=== PATIENT | female | born 1980 | race Caucasian/White ===

== ENCOUNTER 2021-12-15 11:16 | Observation (INO) ==
[2021-12-15] MEDS ORDERED: ONDANSETRON INJ 2 MG/ML 2 ML VIAL IV STA (11:33)
--- NOTE | 2021-12-15 11:42 | Emergency Department Note ---
History of Present Illness General Chief complaint: Vaginal Bleeding Stated complaint: HYSTERECTOMY INCISION OPENING, REF Time Seen by Provider: 12/15/21 11:26 Source: patient History of Present Illness Provider complaint: Pelvic pain Onset (ago): hour(s) Location: pelvis Radiation: non-radiation Pain Consistency: + constant Maximum Pain Intensity: 10 Quality: + sharp Exacerbated By: + other (Pelvic exam by registered pharmacist) Associated symptoms: + nausea/vomiting; no chest pain, no cough, no fever/chills, no shortness of breath or no weakness This is a 41-year-old female who underwent robotic assisted hysterectomy 10 weeks ago presenting with pelvic pain starting at 7 AM this morning. The patient states that she has been having intercourse over the past month without issue. Today she had intercourse in the morning at approximately 7 AM. They were finished and then less than a minute later she started having severe pain in her vagina. She describes it as a sharp pain. It was associated with vomiting. She rates it a 10 out of 10 in severity. It is better now after she took a half of a Percocet prior to arrival. She says it got better but then became worse again. She called her registered pharmacist to saw her in the office. She did an exam and was told that she had a vaginal cuff tear. Due to her pain she could not have an ultrasound and so she was sent to the emergency department for blood work, CT scanning of the abdomen pelvis and a COVID test. The patient denies any fever, cough or cold symptoms, chest pain, shortness of breath, diarrhea, urinary symptoms or leg swelling or pain. Home Medications Medication Instructions Recorded Confirmed Type ropinirole 2 mg tablet 2 mg PO HS 09/15/21 12/15/21 History montelukast 10 mg tablet 10 mg PO HS 09/30/21 12/15/21 History (Alize) geriatric multivitamin-min 1 tab PO DAILY 10/05/21 12/15/21 History Allergies Allergy/AdvReac Type Severity Reaction Status Date / Time Penicillins Allergy Severe Anaphylaxis Verified 12/15/21 10:37 amoxicillin Allergy Intermediate itching Verified 12/15/21 10:37 codeine Allergy Intermediate itching Verified 12/15/21 10:37 nickel Allergy Intermediate itching Verified 12/15/21 10:37 and skin irritation Past Med/Surg History Medical History (Updated 12/15/21 @ 16:14 by Xavi Guillaume MD) History of COVID-19 05/2021 nasal congestion and headache History of Hugo-Portillo virus infection Hx of sinus tachycardia no recent problems Restless leg syndrome Seasonal allergies Surgical History H/O LEEP H/O wrist surgery right S/P laparoscopic hysterectomy TLH-BS, R ovarian cystectomy, cysto Family History Other No family history of adverse response to anesthesia Social History Smoking Status: Never smoker Tobacco Type: E-cigarettes / Vaping Second Hand Exposure: No; Hx Alcohol Use: Yes Alcohol type: wine Hx Substance Use: No Preferred Language: Barbadian Communication Ability: Effective Carton Liner Required: No Beliefs That Will Affect Care: None Current Living Situation: Family Feels Safe at Home: Yes Assistive Devices: Contacts and Glasses Review of Systems See HPI for pertinent positives & negatives. and A total of 10 systems reviewed and were otherwise negative Physical Exam Vital Signs Vital Signs - 24 hr 12/15/21 11:19 12/15/21 11:48 12/15/21 14:00 Temperature 37 C Temperature Source Temporal Artery Scan Pulse Rate 92 H 68 Pulse Rate [Right Finger] 68 70 Pulse Rhythm Regular Pulse Rhythm [Right Finger] Regular Regular Pulse Strength [Right Finger] Normal Normal Respiratory Rate 18 18 17 Respiratory Effort / Characteristics Non-Labored Spontaneous Non-Labored Spontaneous Non-Labored Spontaneous Respiratory Depth Normal Normal Normal Respiratory Pattern Regular Regular Regular Blood Pressure 123/79 Blood Pressure [Right Arm] 121/69 Blood Pressure Mean 93 Blood Pressure Mean [Right Arm] 86 Blood Pressure Position Standing Blood Pressure Position [Right Arm] Lying Pulse Oximetry 95 98 98 Oxygen Delivery Method Room Air Room Air Room Air Sepsis Recent Fever Within 48 Hours No Sepsis New/Unexplained Change in Mental Status No Sepsis Action Taken by Nursing No Action Required 12/15/21 15:21 12/15/21 15:41 Temperature 36.9 C Temperature Source Oral Pulse Rate 70 Pulse Rate [Right Finger] 67 Pulse Rhythm Pulse Rhythm [Right Finger] Regular Pulse Strength [Right Finger] Normal Respiratory Rate 16 20 Respiratory Effort / Characteristics Non-Labored Spontaneous Respiratory Depth Normal Respiratory Pattern Regular Blood Pressure 106/68 Blood Pressure [Right Arm] 114/56 L Blood Pressure Mean Blood Pressure Mean [Right Arm] 75 Blood Pressure Position Blood Pressure Position [Right Arm] Sitting Pulse Oximetry 97 96 Oxygen Delivery Method Room Air Room Air Sepsis Recent Fever Within 48 Hours Sepsis New/Unexplained Change in Mental Status Sepsis Action Taken by Nursing Constitutional: Vital signs reviewed. Eyes: Pupils are equal round reactive to light. Conjunctiva are noninjected. ENT: Pharynx is clear without erythema or exudate. Mucous membranes are moist. Neck supple without meningeal signs. Respiratory: Clear to auscultation bilaterally. Breath sounds are equal rita aterally. Cardiovascular: Regular rate and rhythm. No rubs or gallops. GI: Soft, nondistended with mild suprapubic tenderness. Well-healed laparoscopy scars. Bowel sounds are present. : Deferred per patient request. Musculoskeletal: No peripheral edema. No lower extremity tenderness. Integumentary: No cyanosis. or jaundice. Neurological: The patient is awake and alert. No focal deficits. Psychiatric: Slightly anxious. Course Administered Medications Sodium Chloride (Nss 1000ml) 1,000 mls @ 125 mls/hr IV .Q8H RADHA Stop: 01/14/22 11:44 Last Admin: 12/15/21 11:59 Dose: 125 mls/hr Documented by: [id number] Discontinued Medications Clindamycin Phosphate (Cleocin/D5w) 900 mg in 50 mls @ 100 mls/hr IV ONE ONE Stop: 12/15/21 14:59 Last Admin: 12/15/21 15:39 Dose: 100 mls/hr Documented by: [id number] Ioversol (Optiray 320 100ml) 95 ml IV ONCE ONE Stop: 12/15/21 13:00 Last Admin: 12/15/21 12:52 Dose: 95 ml Documented by: [id number] Morphine Sulfate (Morphine Sulfate 2 Mg/Ml Carp) 2 mg IV NOW STA Stop: 12/15/21 13:10 Last Admin: 12/15/21 15:30 Dose: Not Given Documented by: [id number] Ondansetron HCl (Ondansetron Inj 2 Mg/Ml 2 Ml Vial) 4 mg IV NOW STA Stop: 12/15/21 11:34 Last Admin: 12/15/21 15:30 Dose: Not Given Documented by: [id number] Medical Decision Making Differential Diagnosis Surgical wound dehiscence, vaginal cuff tear, hematoma, hemorrhage, anemia Medical Records Attestation: I reviewed the patient's medical records. I did perform a limited focused review of portions of the patient's old chart on the electronic medical record. The patient underwent robotic assisted hysterectomy by Dr. Culp on October 05. She was seen by Dr. Squires today and diagnosed with a vaginal cuff tear and sent to the emergency department for CT of the abdomen pelvis, blood work and COVID testing. Anticipate repair by Dr. Menon. Home Medications Current Medication List: was personally reviewed by me Laboratory Data Attestation: I reviewed the patient's lab results. Result diagrams: 12/15/21 11:45 12/15/21 11:45 Lab Results 12/15/21 12/15/21 12/15/21 Range/Units 11:45 11:45 11:45 WBC 14.17 H (4.8-10.8) K/uL RBC 4.39 (4.2-5.4) M/uL Hgb 12.6 (12.0-16.0) g/dL Hct 37.2 (37-47) % MCV 84.7 (80-100) fL MCH 28.7 (25-34) pg MCHC 33.9 (32-36) g/dL RDW Std Deviation 39.7 (36.4-46.3) fL RDW Coeff of Aspne 13.0 (11.5-14.5) % Plt Count 253 (130-400) K/uL MPV 10.9 H (7.4-10.4) fL Immature Gran % (Auto) 0.1 % Neut % (Auto) 80.5 % Lymph % (Auto) 12.2 % Taylor % (Auto) 6.8 % Eos % (Auto) 0.2 % Baso % (Auto) 0.2 % Neut # (Auto) 11.39 H (1.4-6.5) K/uL Lymph # (Auto) 1.73 (1.2-3.4) K/uL Taylor # (Auto) 0.97 H (0.11-0.59) K/uL Eos # (Auto) 0.03 (0-0.5) K/uL Baso # (Auto) 0.03 (0-0.2) K/uL Immature Gran # (Auto) 0.02 (0.00-0.02) K/uL Sodium 137 (136-145) mmol/L Potassium 3.8 (3.5-5.1) mmol/L Chloride 108 H (98-107) mmol/L Carbon Dioxide 21 (21-32) mmol/L Anion Gap 8 (3-11) BUN 8 (6-23) mg/dl Creatinine 0.70 (0.6-1.2) mg/dl Est Cr Clr Drug Dosing Not Reportable Est GFR ( Amer) 123.0 ml/min Est GFR (Non-Af Amer) 106.1 ml/min BUN/Creatinine Ratio 11.4 (10-20) Glucose 114 H (70-99(Fasting)) mg/dl Calcium 8.9 (8.5-10.1) mg/dl Total Bilirubin 0.4 (0.2-1.0) mg/dl AST 18 (13-39) U/L ALT 19 (7-52) U/L Alkaline Phosphatase 52 (34-104) U/L Total Protein 6.8 (6.0-8.3) gm/dl Albumin 3.9 (3.4-5.0) gm/dl Globulin 2.9 (2.5-4.0) gm/dl Albumin/Globulin Ratio 1.3 (0.9-2) SARS-CoV-2, RNA, NAAT NEGATIVE (NEGATIVE) Blood Type Antibody Screen 12/15/21 Range/Units 14:22 WBC (4.8-10.8) K/uL RBC (4.2-5.4) M/uL Hgb (12.0-16.0) g/dL Hct (37-47) % MCV (80-100) fL MCH (25-34) pg MCHC (32-36) g/dL RDW Std Deviation (36.4-46.3) fL RDW Coeff of Aspen (11.5-14.5) % Plt Count (130-400) K/uL MPV (7.4-10.4) fL Immature Gran % (Auto) % Neut % (Auto) % Lymph % (Auto) % Taylor % (Auto) % Eos % (Auto) % Baso % (Auto) % Neut # (Auto) (1.4-6.5) K/uL Lymph # (Auto) (1.2-3.4) K/uL Taylor # (Auto) (0.11-0.59) K/uL Eos # (Auto) (0-0.5) K/uL Baso # (Auto) (0-0.2) K/uL Immature Gran # (Auto) (0.00-0.02) K/uL Sodium (136-145) mmol/L Potassium (3.5-5.1) mmol/L Chloride (98-107) mmol/L Carbon Dioxide (21-32) mmol/L Anion Gap (3-11) BUN (6-23) mg/dl Creatinine (0.6-1.2) mg/dl Est Cr Clr Drug Dosing Est GFR ( Amer) ml/min Est GFR (Non-Af Amer) ml/min BUN/Creatinine Ratio (10-20) Glucose (70-99(Fasting)) mg/dl Calcium (8.5-10.1) mg/dl Total Bilirubin (0.2-1.0) mg/dl AST (13-39) U/L ALT (7-52) U/L Alkaline Phosphatase (34-104) U/L Total Protein (6.0-8.3) gm/dl Albumin (3.4-5.0) gm/dl Globulin (2.5-4.0) gm/dl Albumin/Globulin Ratio (0.9-2) SARS-CoV-2, RNA, NAAT (NEGATIVE) Blood Type A Positive Antibody Screen NEGATIVE Imaging Data Radiologist's Impression: Abdomen/Pelvis CT 12/15/21 11:33 CT OF THE ABDOMEN AND PELVIS WITH CONTRAST CLINICAL HISTORY: s/p hysterectomy vaginal cuff tear COMPARISON STUDY: Pelvic ultrasound September 15, 2021. TECHNIQUE: Following IV administration of 95 mL of Optiray, axial images of the abdomen and pelvis were obtained from the lung bases to the proximal femurs. Images were reviewed in the axial, sagittal, and coronal planes. IV contrast was administered without complication. Automated exposure control was utilized for the study. A dose lowering technique was utilized adhering to the principles of ALARA. CT DOSE: 567.65 mGy.cm FINDINGS: Lung bases are unremarkable. No pneumatosis, free air or portal venous gas is present. There is a 1.2 cm lateral segment hepatic cyst. There is no biliary or pancreatic ductal dilatation. The spleen, adrenal glands, kidneys and pancreas are unremarkable. Subcentimeter left renal lesion is too small to characterize. There is no hydronephrosis. Appendix is normal. No evidence for a bowel obstruction. There is trace fluid within the pelvis. There is no pelvic fluid collection. Uterus is surgically absent. A 1.5 cm hypodense lesion within the left ovary favors a dominant follicle. There is a small amount of nonocclusive thrombus within the right ovarian vein shown best on axial image 290 of 476. There is also a small amount of nonocclusive thrombus within a right internal iliac vein on axial image 296. IMPRESSION: 1. Small amount of nonocclusive thrombus within the right ovarian vein and a branch of the right internal iliac vein. 2. Trace fluid within the pelvis. No pelvic fluid collection. 3. No bowel obstruction. No bowel wall thickening. Normal appendix. ACT 112: Negative or not required by law. Electronically signed by: Vicente Restrepo M.D. 12/15/2021 1:10 PM MDM Narrative I did evaluate the patient as noted above. The patient developed a vaginal cuff tear after having intercourse this morning. She had a hysterectomy 10 weeks a go. She was sent here by [facility] for a CT scan and blood work. I made the patient n.p.o. IV access was established. I did treat the patient with Zofran IV and normal saline IV. 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 She declined any pain medication. I did order and review the patient's blood work as noted in the electronic medical record. Her white blood cell count is 14.1. Hemoglobin is 12.6. CMP is unremarkable. SARS COVID testing is negative. I did order a CT of the abdomen and pelvis. I did review the images myself as well as the radiology report as described above. She has a trace amount of free fluid in the pelvis. There is a small nonocclusive thrombus within the right ovarian vein and a branch of the right internal iliac vein. I did discuss the test results with the patient. She denies any prior history of PE or DVT. She states she is adopted and does not know her family history. I did discuss case with Dr. Menon who came to the emergency department and examined the patient. She was hospitalized for operative repair of the vaginal cuff tear and she will be anticoagulated afterwards. Impression & Plan Dehiscence of vaginal cuff, Iliac vein thrombosis, right, Thrombosis of ovarian vein Discharge Plan Visit Data Chief Complaint: Vaginal Bleeding Stated Complaint: HYSTERECTOMY INCISION OPENING, REF ED Provider: Xavi Guillaume Discharge Problem: Dehiscence of vaginal cuff, Iliac vein thrombosis, right, Thrombosis of ovarian vein Patient Disposition: Being Evaluated by Surgeon Discharge Instructions Interventions: ED Discharge Assessment Last Done: 12/15/21 15:21
[2021-12-15] MEDS ORDERED: SODIUM CHLORIDE 0.9% 1000ML 1,000 ML IV SCH (11:45)
[2021-12-15 12:04] LABS: Basophils # (auto) 0.03 K/uL (0-0.2); Basophils % (auto) 0.2 %; Eosinophils # (auto) 0.03 K/uL (0-0.5); Eosinophils % (auto) 0.2 %; Hematocrit (blood only) 37.2 % (37-47); Hemoglobin 12.6 g/dL (12.0-16.0); Immature Granulocytes # (auto) 0.02 K/uL (0.00-0.02); Immature Granulocytes % (auto) 0.1 %; Lymphocytes # (auto) 1.73 K/uL (1.2-3.4); Lymphocytes % (auto) 12.2 %; Mean Corpuscular Hemoglobin 28.7 pg (25-34); Mean Corpuscular Hgb Conc 33.9 g/dL (32-36); Mean Corpuscular Volume 84.7 fL (80-100); Mean Platelet Volume 10.9 fL (7.4-10.4); Monocytes # (auto) 0.97 K/uL (0.11-0.59); Monocytes % (auto) 6.8 %; Neutrophils # (auto) 11.39 K/uL (1.4-6.5); Neutrophils % (auto) 80.5 %; Platelet Count 253 K/uL (130-400); RDW Standard Deviation 39.7 fL (36.4-46.3); Red Blood Count 4.39 M/uL (4.2-5.4); White Blood Count 14.17 K/uL (4.8-10.8)
[2021-12-15 12:40] LABS: Alanine Aminotransferase 19 U/L (7-52); Albumin Globulin Ratio 1.3 (0.9-2); Albumin Level 3.9 gm/dl (3.4-5.0); Alkaline Phosphatase 52 U/L (34-104); Anion Gap 8 (3-11); Aspartate Aminotransferase 18 U/L (13-39); BUN Creatinine Ratio 11.4 (10-20); Bilirubin,Total 0.4 mg/dl (0.2-1.0); Blood Urea Nitrogen 8 mg/dl (6-23); Calcium 8.9 mg/dl (8.5-10.1); Carbon Dioxide 21 mmol/L (21-32); Chloride 108 mmol/L (98-107); Est GFR (Non-African American) 106.1 ml/min; Globulin 2.9 gm/dl (2.5-4.0); Glucose 114 mg/dl (70-99(Fasting)); Potassium 3.8 mmol/L (3.5-5.1); Sodium 137 mmol/L (136-145); Total Protein 6.8 gm/dl (6.0-8.3)
[2021-12-15] MEDS ORDERED: OPTIRAY 320 100ml IV ONE (12:59)
[2021-12-15] MEDS ORDERED: MoRPHine SULFATE 2 MG/ML CARP IV STA (13:09)
--- NOTE | 2021-12-15 13:13 | CT Scan Report ---
CT OF THE ABDOMEN AND PELVIS WITH CONTRAST CLINICAL HISTORY: s/p hysterectomy vaginal cuff tear COMPARISON STUDY: Pelvic ultrasound September 15, 2021. TECHNIQUE: Following IV administration of 95 mL of Optiray, axial images of the abdomen and pelvis we re obtained from the lung bases to the proximal femurs. Images were reviewed in the axial, sagittal, and coronal planes. IV contrast was administered without complication. Automated exposure control wa s utilized for the study. A dose lowering technique was utilized adhering to the principles of ALARA . CT DOSE: 567.65 mGy.cm FINDINGS: Lung bases are unremarkable. No pneumatosis, free air or portal venous gas is present. Ther e is a 1.2 cm lateral segment hepatic cyst. There is no biliary or pancreatic ductal dilatation. The spleen, adrenal glands, kidneys and pancreas are unremarkable. Subcentimeter left renal lesion is too small to characterize. There is no hydronephrosis. Appendix is normal. No evidence for a bowel obstr uction. There is trace fluid within the pelvis. There is no pelvic fluid collection. Uterus is surgic ally absent. A 1.5 cm hypodense lesion within the left ovary favors a dominant follicle. There is a s mall amount of nonocclusive thrombus within the right ovarian vein shown best on axial image 290 of 4 76. There is also a small amount of nonocclusive thrombus within a right internal iliac vein on axial image 296. IMPRESSION: 1. Small amount of nonocclusive thrombus within the right ovarian vein and a branch of the right inte rnal iliac vein. 2. Trace fluid within the pelvis. No pelvic fluid collection. 3. No bowel obstruction. No bowel wall thickening. Normal appendix. ACT 112: Negative or not required by law. Electronically signed by: Vicente Restrepo M.D. 12/15/2021 1:10 PM
[2021-12-15] MEDS ORDERED: GENTAMICIN CONSULT ACTIVE PRN (13:58)
[2021-12-15] MEDS ORDERED: LACTATED RINGER'S 1,000 ML IV SCH ×2 (14:00→18:15)
--- NOTE | 2021-12-15 14:07 | History & Physical Report ---
Date of Service December 15, 2021 Assessment & Plan (1) Dehiscence of vaginal cuff: Plan: Patient was Counseled today regarding her situation I did not do a pelvic exam as she found the exam very uncomfortable in the office and I trust the exam from Dr. Squires that there is a separation of the vaginal cuff that needs repaired. Patient really prefers not another examination in the ER and I think this is reasonable I discussed repair of the vaginal cuff usually this is a vaginal procedure. However I did discuss the possibility of laparoscopy as well if I was unsure if there was any internal organ damage I have these do not suspect this is the case however the laparoscopy will added to the consent although it would be likely not be required. So procedure will be repair of vaginal cuff dehiscence and possible diagnostic laparoscopy we discussed risks including but not limited to the risk of bleeding infection injury to internal organs specifically the bowel bladder and ureter The patient also has several thrombi in her ovarian vein and iliac vein on the r ight side. I have discussed these with Dr. Lane and medicine they will consult the patient as well and follow afterwards we reviewed that a short surgical procedure at this stage is essential and no specific anticoagulation will be done prior to surgery beyond SCDs. Anticoagulation will be addressed afterwards. Likely I will keep the patient overnight in observation History of Present Illness Primary Care Provider: Kee Chambers MD Patient has vaginal cuff separation she had a laparoscopic hysterectomy in early September [address] Wills this was an uncomplicated surgery and she was doing well postoperatively she had intercourse several times this week and then this morning she had intercourse and felt a sudden pain at the end of intercourse at that states she felt some lower abdominal pain and also pain in the vagina. She had no significant bleeding or gush of fluid but she presented to the office at that time she was assessed by Dr. Squires and it was noted on examination at that time that there was a separation of the vaginal cuff no intestine Selam or internal organs were seen but possibly fat was seen. The patient found this exam uncomfortable so have not repeated this today she last ate or drank specifically eating last night and she sips some soda this morning Allergies Allergy/AdvReac Type Severity Reaction Status Date / Time Penicillins Allergy Severe Anaphylaxis Verified 12/15/21 10:37 amoxicillin Allergy Intermediate itching Verified 12/15/21 10:37 codeine Allergy Intermediate itching Verified 12/15/21 10:37 nickel Allergy Intermediate itching Verified 12/15/21 10:37 and skin irritation Home Medications Medication Instructions Recorded Confirmed Type ropinirole 2 mg tablet 2 mg PO HS 09/15/21 12/15/21 History montelukast 10 mg tablet 10 mg PO HS 09/30/21 12/15/21 History (Ezequielir) geriatric multivitamin-min 1 tab PO DAILY 10/05/21 12/15/21 History Patient History Medical History History of COVID-19 05/2021 nasal congestion and headache History of Hugo-Portillo virus infection Hx of sinus tachycardia no recent problems Restless leg syndrome Seasonal allergies Surgical History (Updated 12/15/21 @ 11:42 by Gifty Squires MD) H/O LEEP H/O wrist surgery right S/P laparoscopic hysterectomy TLH-BS, R ovarian cystectomy, cysto Family History Other No family history of adverse response to anesthesia Social History Smoking Status: Never smoker Tobacco Type: E-cigarettes / Vaping Second Hand Exposure: No; Hx Alcohol Use: Yes Alcohol type: wine Hx Substance Use: No Preferred Language: Chinese Communication Ability: Effective Pvc Monitor Required: No Beliefs That Will Affect Care: None Current Living Situation: Family Feels Safe at Home: Yes Assistive Devices: Contacts and Glasses Review of Systems as per Subjective / HPI Physical Exam Constitutional: WD/WN, vitals as above well developed and well nourished Respiratory: normal respiratory effort, lungs clear to auscultation normal respiratory effort Cardiovascular: RRR, no murmur, no edema Gastrointestinal (Abdomen): normal bowel sounds, soft, nontender, no hepatosplenomegaly Results & Data ([facility]) Vital Signs (Past 12 Hours) Vital Signs Temp Pulse Pulse Resp BP BP Pulse Ox 12/15/21 14:00 70 17 98 12/15/21 11:48 68 68 18 121/69 98 12/15/21 11:19 98.6 F 92 H 18 123/79 95 Coding Level of Care Code 83347 Initial Inpt Care Lvl 3 Diagnoses Dehiscence of vaginal cuff T81.31XA
[2021-12-15] MEDS ORDERED: GENTAMICIN SULFATE IV ONE (14:30)
[2021-12-15] MEDS ORDERED: DEXTROSE 5% IV ONE (14:30)
[2021-12-15] MEDS ORDERED: CLINDAMYCIN/D5W 900 MG/50 ML BAG IV ONE (14:30)
--- NOTE | 2021-12-15 14:41 | Anesthesiology Consultation ---
Date of Service December 15, 2021 Assessment & Plan Chart Review Chart Review: Acceptable Risk for Surgery History Surgery Operation Date: 12/15/21 14:30 Proposed Procedures p Vaginal Cuff Repair - Brandon Menon MD, FACOG Height/Weight Weight: 83 kg Allergies Allergy/AdvReac Type Severity Reaction Status Date / Time Penicillins Allergy Severe Anaphylaxis Verified 12/15/21 10:37 amoxicillin Allergy Intermediate itching Verified 12/15/21 10:37 codeine Allergy Intermediate itching Verified 12/15/21 10:37 nickel Allergy Intermediate itching Verified 12/15/21 10:37 and skin irritation Medications Home Medications Medication Instructions Recorded Confirmed Last Taken ropinirole 2 mg tablet 2 mg PO HS 09/15/21 12/15/21 10/05/21 00:30 montelukast 10 mg tablet 10 mg PO HS 09/30/21 12/15/21 09/30/21 23:00 (Singulair) geriatric multivitamin-min 1 tab PO DAILY 10/05/21 12/15/21 10/04/21 10:00 Active Medications Generic Name Dose Route Start Last Admin Trade Name Freq PRN Reason Stop Dose Admin Sodium Chloride 1,000 mls @ 125 mls/hr 12/15/21 11:45 12/15/21 11:59 Nss 1000ml IV 01/14/22 11:44 125 mls/hr .Q8H RADHA Administration Past Medical History Medical History History of COVID-19 05/2021 nasal congestion and headache History of Hugo-Portillo virus infection Hx of sinus tachycardia no recent problems Restless leg syndrome Seasonal allergies Past Family History Family History Other No family history of adverse response to anesthesia Past Surgical History Surgical History H/O LEEP H/O wrist surgery right S/P laparoscopic hysterectomy TLH-BS, R ovarian cystectomy, cysto Social History Smoking Status: Never smoker tobacco type: e-cigarettes Hx Alcohol Use: Yes Alcohol type: wine alcohol intake frequency: a few times a month Hx Substance Use: No substance use type: does not use Physical Exam Vital Signs Last Vital Signs Temp 37 C 12/15/21 11:19 Pulse 70 12/15/21 14:00 Resp 17 12/15/21 14:00 BP 121/69 12/15/21 11:48 Pulse Ox 98 12/15/21 14:00 Testing Laboratory Results 12/15/21 11:45 12/15/21 11:45
--- NOTE | 2021-12-15 14:45 | Hospitalist Consultation ---
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 Should have therapeutic anticoagulation for a minimum of [address] South our coagulation specialist there are 2 choices for this, somewhat dependent upon the surgical evaluation of her risk of postoperative bleeding. If the risk of postoperative bleeding is high, consideration for Lovenox 120 mg subcu daily for 7 days, started 12 hours post procedure, and then transition to Eliquis 5 mg twice daily for the duration of the 3 months The risk of bleeding is moderate to low then Eliquis may be started 12 hours postoperatively at 10 mg twice daily and then transition to 5 mg twice daily after 1 week for the duration. Case management may supply the patient with a coupon for first month discount for Eliquis therapy. And a referral can be given to the coagulation clinic at [facility] if felt appropriate by her attending. If Lovenox is chosen there is a Lovenox teaching kit available that nurses can begin to teach patient how to use the subcutaneous injections. The Lovenox dose above (120) as mentioned above is at the 1.5 mg/kg dose given daily, alternatively 80 mg subcu twice daily could be used. Was operative. Until hemostasis is achieved SCDs may be employed (2) Restless leg syndrome: Continue ropinirole 2 mg at bedtime (3) Seasonal allergies: May be continued 10 at bedtime History of Present Illness History of Present Illness 41-year-old female who had a laparoscopic hysterectomy October [address] Culp to came in with vaginal pain and was found to have vaginal cuff separation. Patient was found during her emergency room evaluation to have a partial occlusion of the right ovarian vein and a branch of the right internal iliac artery with nonocclusive thrombus. We are consulted medically for anticoagulation advice. I did discuss with the ER doctor regarding initiation of Eliquis therapy as this is a provoked event from pelvic surgery however due to the nature of the patient's discomfort the patient will be brought in on the gynecological service and therefore a formal consultation was undertaken. I did speak with Dr. Earnest Menon and I did speak electronically via text with Dr. Amee romo our coagulation specialist. Therapeutic anticoagulation is recommended post procedure somewhat depends on the nature of the ureter that is going to be performed however approximately 12 hours post procedure we will start full anticoagulation with either Lovenox 120 mg daily (1.5 mg/kg (or Eliquis 10 twice daily for 7 days and then 5 twice daily for 3 months. If the Lovenox is chosen after 1 week's time she can transition down to the Eliquis 5 twice daily. Somewhat depend on the surgeons assessment of the possible postprocedural bleeding. As Lovenox is more easy to control as it stopping it has a less half-life. Allergies Allergy/AdvReac Type Severity Reaction Status Date / Time Penicillins Allergy Severe Anaphylaxis Verified 12/15/21 10:37 amoxicillin Allergy Intermediate itching Verified 12/15/21 10:37 codeine Allergy Intermediate itching Verified 12/15/21 10:37 nickel Allergy Intermediate itching Verified 12/15/21 10:37 and skin irritation Home Medications Medication Instructions Recorded Confirmed Type ropinirole 2 mg tablet 2 mg PO HS 09/15/21 12/15/21 History montelukast 10 mg tablet 10 mg PO HS 09/30/21 12/15/21 History (Singulair) geriatric multivitamin-min 1 tab PO DAILY 10/05/21 12/15/21 History Patient History Medical History (Updated 12/15/21 @ 14:[address] MD) History of COVID-19 05/2021 nasal congestion and headache History of Hugo-Portillo virus infection Hx of sinus tachycardia no recent problems Restless leg syndrome Seasonal allergies Surgical History (Updated 12/15/21 @ 11:42 by Gifty Squires MD) H/O LEEP H/O wrist surgery right S/P laparoscopic hysterectomy [facility]-BS, R ovarian cystectomy, cysto Family History Other No family history of adverse response to anesthesia Social History Smoking Status: Never smoker Tobacco Type: E-cigarettes / Vaping Second Hand Exposure: No; Hx Alcohol Use: Yes Alcohol type: wine Hx Substance Use: No Preferred Language: Yoruba Communication Ability: Effective 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 Beliefs That Will Affect Care: None Current Living Situation: Family Feels Safe at Home: Yes Assistive Devices: Contacts and Glasses Review of Systems Review of Systems: Mild distress and fatigue no headache, no visual changes no speech or swallowing issues no chest pain, pressure or palpitations no shortness of breath, cough or wheezes no abdominal pain, nausea or vomiting, diarrhea or constipation Vaginal discomfort especially to the exam no dysuria, hematuria or frequency no focal joint pain or swelling no back pain, CVA tenderness or radicular pain no bruising, bleeding or rashes no focal signs of weakness or numbness or altered sensation no complaints of anxiety or depression.. Physical Exam Physical Exam: The patient appeared stable Vital signs as documented. Lungs are clear to auscultation and appear unlabored Cardiac exam, Rhythm is regular.. No murmurs, rubs or gallops. Abdominal exam reveals normal bowel sounds, soft non tender, no masses Extremities are nonedematous and both pedal pulses are normal. Venous cords no tenderness swelling Neurologic exam is alert and oriented, no focal loss of strength or sensation Skin is without bruises or rashes Psychologically is without concerns for anxiety or depression. Results & Data Results & Data ([facility]) Vital Signs (Past 12 Hours) Vital Signs Temp Pulse Pulse Resp BP BP Pulse Ox 12/15/21 14:00 70 17 98 12/15/21 11:48 68 68 18 121/69 98 12/15/21 11:19 98.6 F 92 H 18 123/79 95 PG Care Time/CCT Total # of Minutes Spent Total Time Spent with Patient: Total time spent is greater than 50% in coordination of care (as documented) at patient's floor/unit and/or counseling patient: Coding Level of Care Code 21322 Inpt Consult Level 3 Diagnoses Thrombosis of pelvic vein I82.890 Restless leg syndrome G25.81 Seasonal allergies J30.2
[2021-12-15] MEDS ORDERED: PROMETHAZINE HCL 12.5 MG in SODIUM CHLORIDE 0.9% 50 ML IV PRN (15:44)
[2021-12-15] MEDS ORDERED: fentaNYL citrate 100 MCG/2 ML VIAL IV PRN (15:44)
[2021-12-15] MEDS ORDERED: ePHEDrine sulfate 50 MG/ML AMP IV PRN (15:44)
[2021-12-15] MEDS ORDERED: ATROPINE SULFATE 0.1 MG/ML 10ML SYR IV PRN (15:44)
[2021-12-15] MEDS ORDERED: ONDANSETRON INJ 2 MG/ML 2 ML VIAL IV PRN ×2 (15:44→18:15)
[2021-12-15] MEDS ORDERED: PROPOFOL IV EMULSION 10 MG/ML 20 ML VIAL IV ONE (16:05)
[2021-12-15] MEDS ORDERED: fentaNYL citrate 100 MCG/2 ML VIAL ONE (16:05)
[2021-12-15] MEDS ORDERED: LIDOCAINE 2% 2 ML VIAL/AMP(20MG/ML) INFIL ONE (16:05)
[2021-12-15] MEDS ORDERED: MIDAZOLAM HCL 1 MG/ML 2ML VIAL ONE (16:05)
[2021-12-15] MEDS ORDERED: ONDANSETRON INJ 2 MG/ML 2 ML VIAL ONE (16:50)
[2021-12-15] MEDS ORDERED: DEXAMETHASONE SOD INJ 4 MG/ML VIAL ONE ×2 (16:50)
[2021-12-15] MEDS ORDERED: PHENYLEPHRINE 100MCG/ML 5ML SYR ONE (16:54)
--- NOTE | 2021-12-15 17:07 | Operative Report ---
PG Post Operative Report Pre & Post Diagnosis Operation Date: 12/15/21 14:30 Pre-Op Diagnosis: Dehiscence of vaginal cuff Post-Op Diagnosis: Dehiscence of vaginal cuff I identified the patient and participated in the time-out.: Yes Procedure Operation Date: 12/15/21 14:30 Actual Procedures p Vaginal Cuff Repair(Not Applicable) - Brandon Menon MD, FACOG Surgeon Brandon Menon MD, FACOG [employer] . Estimated Blood Loss 5 Findings Consistent with Post-Op Diagnosis Specimens . Description of Procedure Patient given a general anesthetic and preop clindamycin and gentamicin Soares catheter placed in her bladder after she was prepped and draped.Weighted speculum placed in the vagina the cuff was visualized there was a defect from most of the central cuff approximately 3 to 4 cm in length gentle probing failed to reveal any connection with the peritoneal cavity thus I think it was limited to the vaginal tissues. No obvious pus was seen Allis clamps were used to grasp each end of the cuff and then the cuff was run from left to right in a running nonlocked 0 Vicryl stitch and then several interrupted [id number] sutures placed as well for reinforcement hemostasis was excellent instruments removed sponge and instrument counts correct I attest to the content of the Intraoperative Record and any orders documented therein. Any exceptions are noted below. MATTRESS STRIPPER Major Procedure Codes Miscellaneous 81991 Vag Cuff Repair MATTRESS STRIPPER Minor Procedure Codes Miscellaneous 11549 Vag Cuff Repair
[2021-12-15] MEDS ORDERED: SUCCINYLCHOLINE 100MG/5ML SYR IV ONE (17:12)
[2021-12-15] MEDS ORDERED: ACETAMINOPHEN 325 MG TAB PO PRN (18:15)
[2021-12-15] MEDS ORDERED: MEPERIDINE HCL 50 MG/ML CARP IV PRN (18:15)
[2021-12-15] MEDS ORDERED: oxyCODONE/ACETAMINOPHEN 5mg/325mg TAB PO PRN ×2 (18:15)
[2021-12-15] MEDS ORDERED: KETOROLAC 30 MG/ML VIAL IV PRN (18:15)
[2021-12-15] MEDS ORDERED: IBUPROFEN 600 MG TAB PO PRN (18:15)
--- NOTE | 2021-12-15 21:18 | Anesthesiology Progress Note ---
Date of Service December 15, 2021 Anesthesia Post Procedure Vital Signs Vital Signs: Temp Pulse Pulse Pulse Resp BP BP 12/15/21 18:30 98.1 F 64 20 101/70 12/15/21 18:00 97.9 F 64 20 114/75 12/15/21 17:25 73 20 98/63 L 12/15/21 17:15 73 16 114/53 L 12/15/21 17:07 97.7 F 75 18 98/54 L 12/15/21 15:41 98.4 F 67 20 114/56 L 12/15/21 15:21 70 16 106/68 12/15/21 14:00 70 17 12/15/21 11:48 68 68 18 121/69 12/15/21 11:19 98.6 F 92 H 18 123/79 Pulse Ox 12/15/21 18:30 97 12/15/21 18:00 100 12/15/21 17:25 98 12/15/21 17:15 99 12/15/21 17:07 96 12/15/21 15:41 96 12/15/21 15:21 97 12/15/21 14:00 98 12/15/21 11:48 98 12/15/21 11:19 95 Pain Intensity Perineal: Pain Intensity: 0 Transfer of Care Handoff Completed per policy Notes Mental Status: alert / awake / arousable and participated in evaluation Patient Amnestic to Procedure: Yes Nausea / Vomiting: adequately controlled Pain: adequately controlled Airway Patency, RR, SpO2: stable & adequate BP & HR: stable & adequate Hydration State: stable & adequate Anesthetic Complications: no major complications apparent and Pt Satisfied with anesthetic care
[2021-12-15] MEDS ORDERED: CLINDAMYCIN PHOS 900 MG/6 ML VIAL IV SCH (22:00)
[2021-12-15] MEDS ORDERED: APIXABAN 2.5 MG TAB PO SCH (22:30)
[2021-12-15] MEDS: CLINDAMYCIN/D5W 900 MG/50 ML BAG IV SCH (23:48)
[2021-12-16] MEDS: APIXABAN 5 MG TABLET PO SCH ×2 (00:44→08:24)
[2021-12-16] MEDS ORDERED: rOPINIRole HCL 2 MG TABLET PO SCH (03:00)
[2021-12-16 07:27] LABS: Basophils # (auto) 0.01 K/uL (0-0.2); Basophils % (auto) 0.1 %; Hematocrit (blood only) 34.8 % (37-47); Hemoglobin 11.8 g/dL (12.0-16.0); Immature Granulocytes # (auto) 0.04 K/uL (0.00-0.02); Immature Granulocytes % (auto) 0.3 %; Lymphocytes # (auto) 1.17 K/uL (1.2-3.4); Mean Corpuscular Hemoglobin 29.3 pg (25-34); Mean Corpuscular Hgb Conc 33.9 g/dL (32-36); Mean Corpuscular Volume 86.4 fL (80-100); Mean Platelet Volume 11.5 fL (7.4-10.4); Monocytes # (auto) 1.08 K/uL (0.11-0.59); Monocytes % (auto) 8.3 %; Neutrophils # (auto) 10.77 K/uL (1.4-6.5); Neutrophils % (auto) 82.3 %; Platelet Count 239 K/uL (130-400); RDW Standard Deviation 41.7 fL (36.4-46.3); Red Blood Count 4.03 M/uL (4.2-5.4); White Blood Count 13.07 K/uL (4.8-10.8)
--- NOTE | 2021-12-16 07:30 | Gynecologic Progress Note ---
Date of Service December 16, 2021 Assessment & Plan (1) Dehiscence of vaginal cuff: Plan: We reviewed the cuff repair today she is doing extremely well discussed how it did not communicate into the peritoneal cavity but required a number of 0 Vicryl sutures. [place] is to be avoided at this time and she will follow-up in the office with Dr. Wills next week (2) Thrombosis of ovarian vein: Plan: Patient is being managed by medicine for her anticoagulation (3) Iliac vein thrombosis, right: Admission and Anticipated Discharge Date Admission Date: December 15, 2021 Subjective Feels much better no pain today no bleeding no lower abdominal discomfort Review of Systems Constitutional: as per Subjective / HPI; no fever and no fatigue Respiratory: no cough Cardiovascular: no chest pain Gastrointestinal: no bloating Genitourinary: as per Subjective / HPI Neurologic: no memory loss Psychiatric: no behavioral changes Hematologic / Lymphatic: no easy bleeding Physical Exam Constitutional: WD/WN, vitals as above well developed and well nourished Respiratory: normal respiratory effort; no respiratory distress, no retractions and does not use accessory muscles Cardiovascular: RRR, no murmur, no edema Chest (Breasts): normal inspection/palpation of breasts Breast: normal inspection of breasts, normal inspection of axillae, normal palpation of breasts and normal palpation of axillae Gastrointestinal (Abdomen): normal bowel sounds, soft, nontender, no hepatosplenomegaly Neurologic: awake; not confused Results & Data ([facility]) Vital Signs (Past 12 Hours) Vital Signs Temp Pulse Resp BP Pulse Ox 12/16/21 04:55 97.9 F 78 18 96/60 L 94 12/16/21 00:45 98.2 F 90 18 125/71 12/15/21 20:20 83 18 109/70 98 PG Care Time/CCT Total # of Minutes Spent Total Time Spent with Patient: Total time spent is greater than 50% in coordination of care (as documented) at patient's floor/unit and/or counseling patient: Coding Level of Care Code 95269 Subseq Hosp Care Lvl 2 Diagnoses Dehiscence of vaginal cuff T81.31XA Encounter type: initial encounter Thrombosis of ovarian vein I82.890 Iliac vein thrombosis, right I82.421 (1) Dehiscence of vaginal cuff Encounter type: initial encounter Qualified Code(s): T81.31XA - Disruption of external operation (surgical) wound, not elsewhere classified, initial encounter
[2021-12-16 07:48] LABS: Anion Gap 6 (3-11); BUN Creatinine Ratio 17.1 (10-20); Blood Urea Nitrogen 12 mg/dl (6-23); Calcium 8.8 mg/dl (8.5-10.1); Carbon Dioxide 24 mmol/L (21-32); Chloride 109 mmol/L (98-107); Est GFR (Non-African American) 106.1 ml/min; Glucose 141 mg/dl (70-99(Fasting)); Potassium 3.9 mmol/L (3.5-5.1); Sodium 139 mmol/L (136-145)
[2021-12-16] MEDS: CLINDAMYCIN/D5W 900 MG/50 ML BAG IV SCH (08:26)
== END 2021-12-16 13:15 | disposition home or self-care (01) ==
LOC: ED 11:16 → ASU 15:30 → 4E1 15:30
PROC: M.APREP (2021-12-15 14:30)